=== PATIENT | female | born 1940 | race Caucasian/White ===

== ENCOUNTER 2016-07-04 13:24 | Inpatient (IN) | payer MEDICARE ==
--- NOTE | ~2016-07-04 | DS ---
Discharge Summary [facility] [address] [place]. [address] NAME: RANDI RUFFIN : 36 STATUS : DIS IN PAT#: [id number] AGE: 75 ADM/REG DATE : 07/04/16 MR#: [id number] REPORT SERV DATE: 07/07/16 DICTATED BY: TELLY HERRERA DATE: 07/06/16 REPORT STATUS : Draft TRANSCRIBED BY: MODL DATE: 07/06/16 ADMISSION DATE: 07/04/2016 DISCHARGE DATE: 07/06/2016 PRINCIPAL DIAGNOSIS: Depression and anxiety state with subsequent hyperventilation. SECONDARY DIAGNOSES: Encephalopathy with transient confusion and dysarthria; type 2 diabetes, uncontrolled; and diarrhea. HISTORY OF PRESENT ILLNESS: Please see Dr. Martinez's dictation, 07/04/2016. HOSPITAL COURSE: Admitted with altered mental status with confusion and dysarthria subsequent to her son dying unexpectedly. The patient was actually found to have been hyperventilating with pH nearly 7.6. There was a compensatory acidosis as well and there was concern about diabetic complication; however, the patient did not have any ketotic odor. The patient was hydrated. A neurological assessment was done including an MRI, which was negative for any cerebrovascular events. The patient, upon receiving some anxiolytics, actually felt much better. Her respiratory status was better. Her diarrhea was better. Her sugar was stable. This was felt to be a psychiatric complication in nature and she could return home with the care of her other son. DIET: An 1800-calorie ADA diet. ACTIVITY: As tolerated. FOLLOWUP: With Dr. Radha Mcginnis in one to two weeks. SUMIT/RACHEL Telly Herrera M.D. / [id number] CC: Kusum Mason M.D.
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
[~2016-07-04 13:24] MED LIST: *UNABLE3; ASAB PO; ATV1 PO; C1 PO; DIOV80 PO; DURICEF PO; EFFEXOR XR150 MG PO; FLORASTOR250 MG PO; HOME MEDS; HUMALOG SC; KEPPRA1000 MG PO; KEPPRA500 PO; LANTUS SC; LANTUSCART SC; LOP25 PO; LOP50 PO; LOPID6 PO; LORTAB PO; LYRICA200 MG PO; LYRICA50 PO; MCZ25 PO; MEVACOR40 MG PO; NORCO1 TAB PO; NORV5 PO; NOVOLOG SC; NOVOPEN SC; OXYCODONE PO; PEP20 PO; PEPCID40 MG PO; PRILO PO; PRIN20 PO; PRISTIQ50 MG PO; T PO; TOPXL50 PO; XARELTO15 MG PO; XARELTO20 MG PO
[2016-07-04 14:14] LABS: BASOPHILS 0.2 %; BASOPHILS ABSOLUTE 0.02 10/3/uL (0.0-0.16); EOSINOPHILS 0.7 %; EOSINOPHILS ABSOLUTE 0.07 10/3/uL (0.0-0.53); IMMATURE GRANULOCYTES 0.2 %; IMMATURE GRANULOCYTES ABSOLUTE 0.02 10/3/uL (0.0-0.11); LYMPHOCYTES 17.1 %; LYMPHOCYTES ABSOLUTE 1.69 10/3/uL (0.67-4.30); MEAN CORPUS HGB CONC 34.5 g/dL (32.0-36.0); MEAN CORPUSCULAR HEMOGLOB 31.1 pg (26.0-34.0); MEAN PLATELET VOLUME 11.1 fL (9.2-13.0); MONOCYTES 7.1 %; NEUTROPHILS 74.7 %; NEUTROPHILS ABSOLUTE 7.37 10/3/uL (2.02-8.40)
[2016-07-04 14:16] LABS: ER CBC TAT 0 Hrs 08 Mins; HEMATOCRIT 43.2 % (36.0-48.0); HEMOGLOBIN 14.9 g/dL (12.0-16.0); MANUAL DIFF NO %; MEAN CORPUSCULAR VOLUME 90.2 fL (80-100); PLATELET COUNT 268 10/3/uL (150-400); RED CELL COUNT 4.79 10/6/uL (4.0-5.6); WHITE BLOOD CELLS 9.9 10/3/uL (4.5-10.5)
[2016-07-04 14:21] LABS: INTERNATIONAL NORMAL RATI 1.2 UNITS (-); PARTIAL THROMBO TIME 33.3 SEC (22.5-37.2); PROTIME (NOT ORD) 14.6 SEC (12.0-14.5)
[2016-07-04 14:29] LABS: CALCIUM, SERUM 9.5 MG/DL (8.5-10.4); CHLORIDE, SERUM 103 MMOL/L (96-112); CREATININE 0.91 MG/DL (0.55-1.02); GFR AFRICAN AMERICAN 71 ML/MIN (>=60); GFR NON AFRICAN AMERICAN 61 ML/MIN (>=60); POTASSIUM, SERUM 3.6 MMOL/L (3.5-5.3); SALICYLATE 2.1 MG/DL (-); SGOT(AST) 13 U/L (5-40); SGPT(ALT) 14 U/L (5-65); SODIUM, SERUM 139 MMOL/L (135-148)
[2016-07-04 14:33] LABS: A/G RATIO 0.9 (0.7-1.9); ACETAMINOPHEN LEVEL (TYLENOL) < 2.0 MCG/ML (10.0-20.0); ALBUMIN 3.5 G/DL (3.5-5.0); ALCOHOL < 10 MG/DL (0); ALKALINE PHOSPHATASE 136 U/L (45-117); BUN (BLOOD UREA NITROGEN) 31 MG/DL (6-23); CO2 (CARBON DIOXIDE) 15 MMOL/L (24-34); GLOBULIN 4.1 G/DL (2.5-4.1); GLUCOSE, SERUM 286 MG/DL (60-99); TOTAL PROTEIN 7.6 G/DL (6.0-8.5)
[2016-07-04 14:42] LABS: ASCORBIC ACID (UR NOT ORDER) NEG (NEG); BILIRUBIN, URINE NEGATIVE (NEG); ER URINALYSIS TAT 0 Hrs 18 Mins; KETONE, URINE 80 MG/DL (NEG); LEUKOCYTE ESTERASE(NOT OR TRACE (NEG); NITRITE (URINE) NEG (NEG); WBC (NOT ORDERED) (RFLEX) 4 (0-5)
[2016-07-04 14:56] LABS: AMPHETAMINES (NOT ORD) NEG (NEG); BARBITURATES (NOT ORDERED NEG (NEG); BENZODIAZEPINES (NOT ORD) NEG (NEG); CANNABINOIDS (THC) NEG (NEG); COCAINE (NOT ORDERED) NEG (NEG); OPIATES POS (NEG); PHENCYCLIDINE(PCP) NEG (NEG); TRICYCLICS NEG (NEG)
[2016-07-04 15:34] LABS: ALLENS TEST Pos; BE (BASE EXCESS) -3.4 MEQ/L (0 +/- 2.5); HCO3 (ACTUAL BICARBONATE) 16.7 MEQ/L (23-27); HEMOBLOGIN CONTENT 15.6 G/DL (12-16); INSTRUMENT SERIAL # 35151; METHEMOGLOBIN 0.7 % (0-3); O2 CONTENT 20.8 VOL% (18-24); PCO2 (CO2 TENSION) 21 MMHG (35-45); PO2 (O2 TENSION) 78 MMHG (79-93); SAMPLE Arterial; pH 7.53 (7.37-7.43)
[2016-07-04] MEDS ORDERED: NOVOLOG SC (15:43)
[2016-07-04] MEDS ORDERED: NORCO1 TAB PO (15:43)
[2016-07-04] MEDS ORDERED: LYRICA200 MG PO (15:43)
[2016-07-04] MEDS ORDERED: LANTUS SC (15:43)
[2016-07-04] MEDS ORDERED: EFFEXOR XR150 MG PO (15:44)
[2016-07-04] MEDS ORDERED: KEPPRA500 PO (15:46)
[2016-07-04] MEDS ORDERED: PRIN20 PO (15:47)
[2016-07-04] MEDS ORDERED: LOPID6 PO (15:47)
[2016-07-04] MEDS ORDERED: LOP25 PO (15:48)
[2016-07-04] MEDS ORDERED: PEPCID40 MG PO (15:48)
[2016-07-04] MEDS ORDERED: NORV5 PO (15:48)
[2016-07-04] MEDS ORDERED: MEVACOR40 MG PO (15:48)
[2016-07-04] MEDS ORDERED: PRILO PO (15:48)
[2016-07-04] MEDS ORDERED: AMARYL4 PO (15:49)
[2016-07-04 23:08] LABS: CPK 57 U/L (0-200); TROPONIN I 0.08 NG/ML (<0.05)
[2016-07-04 23:41] LABS: PHOSPHORUS, SERUM 3.1 MG/DL (2.5-4.5)
[2016-07-04 23:42] LABS: FOLATE 33.5 NG/ML (>5.2)
[2016-07-05 06:58] LABS: CPK 62 U/L (0-200)
[2016-07-05 06:59] LABS: CK-MB 4.8 NG/ML; TROPONIN I 0.09 NG/ML (<0.05)
[2016-07-05 11:27] LABS: GLYCOHEMOGLOBIN (HbA1c) 10.4 % (4.7-6.1)
[2016-07-05 17:46] LABS: CHLORIDE, SERUM 108 MMOL/L (96-112); GFR AFRICAN AMERICAN 50 ML/MIN (>=60); GFR NON AFRICAN AMERICAN 44 ML/MIN (>=60); PHOSPHORUS, SERUM 3.6 MG/DL (2.5-4.5); SODIUM, SERUM 144 MMOL/L (135-148)
[2016-07-05 17:48] LABS: BUN (BLOOD UREA NITROGEN) 38 MG/DL (6-23); CALCIUM, SERUM 8.4 MG/DL (8.5-10.4); CO2 (CARBON DIOXIDE) 25 MMOL/L (24-34); GLUCOSE, SERUM 104 MG/DL (60-99); POTASSIUM, SERUM 4.4 MMOL/L (3.5-5.3)
[2016-07-06] MEDS ORDERED: ASAB PO (13:33)
[2016-07-06] MEDS ORDERED: ATV.5 PO (13:42)
[2016-09-14] MEDS ORDERED: AMARYL4 PO (01:29)
[2016-09-16] MEDS ORDERED: LOP25 PO (16:32)
[2016-09-16] MEDS ORDERED: LEVAQUIN750 MG PO (16:35)
== END 2016-07-06 15:20 | disposition home or self-care (01) | DRG 640 ==
LOC: ER 13:24 → 1SO 19:31
PROVIDERS: Emergency Medicine; Internal Medicine; Student in an Organized Health Care Education/Training Program
DX: E87.2 Acidosis (principal); G93.40 Encephalopathy, unspecified; E11.65 Type 2 diabetes mellitus with hyperglycemia; F32.9 Major depressive disorder, single episode, unspecified; F41.9 Anxiety disorder, unspecified
CPT/HCPCS: 36600; 70450; 70551-52; 71010; 74176; 80048; 80053; 80061; 80305; 80307; 81001; 82140; 82550; 82553; 82607; 82746; 82805; 82962; 83036; 83605; 83735; 84100; 84484; 84681; 85025; 85610; 85730; 93005; 97162-GP; 99285; A9270-GY; C8929; G8978-CK-GP; G8979-CJ-GP; J2405; Q9957